=== PATIENT | female | born 1955 | race Two or more races ===

== ENCOUNTER 2020-10-26 15:26 | Emergency (ER) | payer MEDICARE ==
[~2020-10-26] VITALS: Ht 160 cm; Wt 77.1 kg
[2020-10-26 15:26] VITALS: BP 12/72
== END 2020-10-26 17:48 | disposition left against medical advice (07) ==
LOC: ER 15:26
DX: M25.511 Pain in right shoulder (principal); R22.31 Localized swelling, mass and lump, right upper limb; Z53.21 Procedure and treatment not carried out due to patient leaving prior to being seen by health care provider
CPT/HCPCS: 73030

== ENCOUNTER 2021-02-17 09:38 | Emergency (ER) | payer MEDICARE ==
[~2021-02-17] VITALS: Ht 167.6 cm; Wt 77.1 kg
[2021-02-17] MEDS ORDERED: SENN1TAB14 PO (15:16)
[2021-02-17] MEDS ORDERED: PERCOT PO (15:16)
[2021-02-17] MEDS ORDERED: CIPR-273 PO (15:16)
[2021-02-17 17:19] VITALS: BP 140/78
== END 2021-02-17 17:26 | disposition home or self-care (01) ==
LOC: ER 09:38
DX: K62.89 Other specified diseases of anus and rectum (principal); Z90.710 Acquired absence of both cervix and uterus
CPT/HCPCS: 74176

== ENCOUNTER 2023-04-11 09:07 | Emergency (ER) | payer MEDICARE ==
[~2023-04-11] VITALS: Ht 175.3 cm; Wt 79.1 kg
[~2023-04-11 09:07] MED LIST: CIPR-273 PO; PERCOT PO; SENN1TAB14 PO
[2023-04-11] MEDS ORDERED: CLINDAMYCIN 300MG IV 50 ML IV ONE (13:00)
[2023-04-11] MEDS ORDERED: SODIUM CHLORIDE 0.9% 1,000 ML IV ONE (13:00)
[2023-04-11] MEDS ORDERED: cefTRIAXone 1GM/50ML D5W 50 ML IV ONE (13:00)
[2023-04-11 13:25] LABS: Basophils # (auto) 0 10 ^3/uL (0-0.2); Basophils % (auto) 0.2 % (0.0-2.0); Eosinophils # (auto) 0.3 10 ^3/uL (0-0.8); Eosinophils % (auto) 2.6 % (0.0-7.0); Hematocrit 49.8 % (36.0-46.0); Hemoglobin 16.9 g/dL (12.2-16.2); Lymphocytes % (auto) 20.1 % (10.0-50.0); Mean Corpuscular Volume 88.2 fL (80.0-100.0); Monocytes # (auto) 0.9 10 ^3/uL (0-1.3); Monocytes % (auto) 8.6 % (0.0-12.0); Neutrophils # (auto) 6.8 10 ^3/uL (1.6-8.6); Neutrophils % (auto) 68.5 % (37.0-80.0); Nucleated Red Blood Cells % 0.1 %; Red Blood Cells 5.65 10^6/uL (4.0-5.20); Red Cell Distribution Width 13.5 % (11.8-14.3); White Blood Cell 9.9 10^3/uL (4.4-10.8)
[2023-04-11 13:44] LABS: Alanine Aminotransferase 12 U/L (7-40); Albumin 4.8 g/dL (3.2-4.8); Alkaline Phosphatase 98 U/L (46-116); Anion Gap 7 (5-15); Aspartate Aminotransferase 10 U/L (13-40); BUN/Creatinine Ratio 18.3 (10.0-20.0); Blood Urea Nitrogen 13 mg/dL (9-23); Carbon Dioxide 26 mmol/L (20-30); Chloride 108 mmol/L (98-107); Glucose 95 mg/dL (74-106); Potassium 4.3 mmol/L (3.5-5.1); Sodium 141 mmol/L (136-145)
[2023-04-11 13:45] LABS: Bilirubin, Total 0.5 mg/dL (0.2-1.0); Total Protein 6.9 g/dL (5.7-8.2)
[2023-04-11] MEDS ORDERED: IOHEXOL 300 MG/ML 100ML BOTTLE IJ ONE (14:27)
[2023-04-11 17:10] VITALS: PULSE 69; RESP 16; O2SAT 98
[2023-04-11 19:04] VITALS: BP 121/76; PULSE 78; RESP 18; TEMP 97; O2SAT 99
== END 2023-04-11 19:49 | disposition short-term general hospital (02) ==
LOC: ER 09:07
DX: L03.113 Cellulitis of right upper limb (principal); Z90.710 Acquired absence of both cervix and uterus
CPT/HCPCS: 36415; 70487; 80053; 83605; 85025; 87040; 96365; 96368; 99285; J0696; J3490; J7030; Q9967